=== PATIENT | female | born 1955 | race African-American/Black ===

== ENCOUNTER 2019-03-13 03:53 | Emergency (ER) | payer OTHER ==
[~2019-03-13] VITALS: Ht 162.6 cm; Wt 90.7 kg
[2019-03-13] MEDS ORDERED: HYDROcodone/APAP 5/325MG 1 TAB TABLET PO ONE (04:15)
--- NOTE | 2019-03-13 04:34 | PHYS DOC ---
Past Medical History Past Medical History: No Pertinent History Past Surgical History: Other Additional Past Surgical Histo: "STOMACH SURGERY" Alcohol Use: None Drug Use: None Adult General Chief Complaint Chief Complaint: SHOULDER INJURY [facility] HPI Patient is a 63 year old [female] who presents with [left shoulder pain.] Pt reports onset of shoulder pain occurring less than an hour before arrival in the emergency department and that it occurred while she was stretching as she woke up. She notes that her shoulder feels "knocked out of place." She reports the pain is a 10/10 with radiation down her left arm. Pain is worsened with any movement to the shoulder. She denies chest pain, vomiting, headache, shortness of breath, and fever/chills. She reports nausea. Review of Systems Review of Systems Constitutional: Denies fever or chills Eyes: Denies change in visual acuity, redness, or eye pain HENT: Denies nasal congestion or sore throat Respiratory: Denies cough or shortness of breath Cardiovascular: No additional information not addressed in HPI GI: Denies abdominal pain, vomiting, bloody stools or diarrhea [Admits nausea] : Denies dysuria or hematuria Musculoskeletal: Denies back pain [Admits to Left shoulder pain] Integument: Denies rash or skin lesions Neurologic: Denies headache, focal weakness or sensory changes Endocrine: Denies polyuria or polydipsia All other systems were reviewed and found to be within normal limits, except as documented in this note. Current Medications Current Medications Current Medications Medications (Trade) Dose Ordered Sig/Laila Start Time Stop Time Status Last Admin Dose Admin Acetaminophen/ Hydrocodone Bitart (Lortab 5/325) 2 tab 1X ONCE 03/13/19 04:15 03/13/19 04:17 DC 03/13/19 04:28 2 TAB Fentanyl Citrate (Fentanyl 2ml Vial) 50 mcg 1X ONCE 03/13/19 04:45 03/13/19 04:46 DC 03/13/19 05:00 50 MCG Propofol (Diprivan) 200 mg 1X ONCE 03/13/19 04:45 03/13/19 04:46 DC 03/13/19 05:09 200 MG Allergies Allergies Allergies Coded Allergies Type Severity Reaction Last Updated Verified No Known Drug Allergies 03/13/19 No Physical Exam Physical Exam Constitutional: acute distress due to the pain, pt was sitting in a chair hunched over a pillow wedged between her elbow and knee. HENT: Normocephalic, atraumatic, bilateral external ears normal, oropharynx moist, no oral exudates, nose normal. Eyes: PERRLA, EOMI, conjunctiva normal, no discharge. Neck: Normal range of motion, no tenderness, supple, no stridor. Cardiovascular:Heart rate regular rhythm, no murmur Lungs & Thorax: Bilateral breath sounds clear to auscultation Abdomen: Bowel sounds normal, soft, no tenderness, no masses, no pulsatile masses. Skin: Warm, dry, no erythema, no rash. Back: No tenderness, no CVA tenderness. Extremities: No tenderness, no cyanosis, no clubbing, ROM intact, no edema. Pt kept Left extremity held in a slightly abducted,flexed, and internally rotated with a pillow underneath her elbow. She was not tender to palpation on her left shoulder. Any slight passive or active movement elicited in the left upper extremity caused the patient immense pain and hampered the ability to perform a more thorough physical examination of the left shoulder. Neurologic: Alert and oriented X 3, normal motor function, normal sensory function, no focal deficits noted. Psychologic: Affect normal, judgement normal, mood normal. Current Patient Data Vital Signs Vital Signs Date Time Temp Pulse Resp B/P (MAP) Pulse Ox O2 Delivery O2 Flow Rate FiO2 03/13/19 05:07 97.6 57 16 167/92 15.0 56 14 15.0 2.0 03/13/19 05:00 97 Room Air EKG EKG [] Radiology/Procedures Radiology/Procedures [] Impressions: dislocation resolved on reduction Course & Med Decision Making Course & Med Decision Making Pertinent Labs and Imaging studies reviewed. (See chart for details) [Pt is a 63 yo female presenting with sudden onset left shoulder pain starting this morning an hour before arrival. She states she was stretching when the pain started. Pain is rated a 10/10 and when asked to describe the pain she states "it feels knocked out of place." Any attempt to passively move the left upper extremity elicits intense pain. She is unable to do any active range of motion due to the pain. She denies chest pain, shortness of breath, or headache. An X- Ray of the Left shoulder was ordered to help determine the etiology of the patients shoulder pain. X-Ray showed an acute dislocation of the left shoulder. Pt was given fentanyl to help with the pain. We discussed the shoulder reduction procedure with the pt and her mother and granddaughter. We explained the use of propofol in this procedure and discussed the risks of using propofol for conscious sedation. Pt understood this information and agreed to undergo reduction of her left shoulder.]. proceudre note: As noted above timeout performed 40 mg propofol given. no apnea observed with etco2 and manager monitoring throughout. no complications easy reduction manual traction shoulder immobizlier confirmed with xray pt neuro intact following procedure. Dragon Disclaimer Dragon Disclaimer This electronic medical record was generated, in whole or in part, using a voice recognition dictation system. Departure Departure Impression: Primary Impression: Shoulder dislocation Disposition: HOME, SELF-CARE Condition: IMPROVED Referrals: NO PCP (PCP) Scripts Hydrocodone/Apap 5-325 (NORCO 5-325 TABLET) 1 Each Tablet 1-2 EACH PO PRN Q6HRS PRN for PAIN, #15 as needed for pain Prov: SILAS CHURCH MD 03/13/19 SILAS CHURCH MD Mar 13, 2019 04:34
[2019-03-13] MEDS ORDERED: PROPOFOL 10 MG/ML (20ML) VIAL. IV ONE (04:45)
[2019-03-13] MEDS ORDERED: fentaNYL PF VIAL 100 MCG/2 ML VIAL IV ONE (04:45)
[2019-03-13 05:07] VITALS: BP 167/92
[2019-03-13] MEDS ORDERED: HYDR-3164 PO (05:23)
[2019-03-13 05:35] VITALS: BP 147/84
--- NOTE | 2019-03-13 05:56 | PHYS DOC ---
MODERATE SEDATION ASSESSMENT RISKS/ALTERNATIVES Risks/Alternatives Risks and alternatives of this type of sedation and procedure discussed with: RISK/ALTERNATIVES: Patient H & P ON CHART H & P H & P on chart and reviewed for co-morbid conditions and appropriate labs. H&P ON CHART: Yes STATUS PREG STATUS ASSESSED: N/A MEDS/ALLERGIES REVIEWED Meds/Allergies Reviewed Medications and Allergies including time and route of recently administered narcotics and sedatives. MEDS/ALLERGIES REVIEWED: Yes ASA RATING ASA RATING: I AIRWAY ASSESSMENT Airway Assessment Airway patency, oral function limitations, presence of caps, crowns, dentures, partials, and ability to extend neck assessed. AIRWAY ASSESSMENT: Yes MALLAMPATI SCORE MALLAMPATI SCORE: I PRE-SEDATION ASSESSMENT PRE-SEDATION ASSESSMENT: Yes SILAS CHURCH MD Mar 13, 2019 05:56
--- NOTE | 2019-03-13 05:59 | RAD ---
Two-view left shoulder radiographs 03/12/2019 CLINICAL HISTORY: Injury to the left shoulder. AP and transscapular digital radiographs left shoulder were obtained. The left humeral head is dislocated anterior to the glenoid. No acute fracture is seen. IMPRESSION: Anterior dislocation of the left shoulder. Electronically signed by: Jarrell Johnson MD (03/13/2019 5:56 AM) [id number]
--- NOTE | 2019-03-13 06:00 | RAD ---
Two-view left shoulder radiographs 03/11/2019 CLINICAL HISTORY: Post reduction of a left shoulder dislocation. AP and AP internal rotation digital radiographs of the left shoulder were obtained. Comparison study is dated earlier the same day. The humeral head now articulates normally with the glenoid. No dislocation is seen. No acute fracture is noted. Degenerative changes are seen involving the left AC joint. The cardiac silhouette is mildly enlarged. IMPRESSION: Post reduction of the anterior dislocation of the left shoulder. Electronically signed by: Jarrell Johnson MD (03/13/2019 5:58 AM) [id number]
== END 2019-03-13 06:02 | disposition home or self-care (01) ==
LOC: ER 03:53
DX: S43.085A Other dislocation of left shoulder joint, initial encounter (principal); X50.9XXA Other and unspecified overexertion or strenuous movements or postures, initial encounter; Y93.89 Activity, other specified; Y92.89 Other specified places as the place of occurrence of the external cause; Y99.8 Other external cause status
CPT/HCPCS: 23650; 73030; 99285; J2704; J3010